=== PATIENT | female | born 1950 | race Caucasian/White ===

== ENCOUNTER 2018-03-15 06:51 | Day surgery (SDC) | payer BC, MEDICARE ==
[~2018-03-15] VITALS: Ht 157.5 cm; Wt 73.2 kg
[2018-03-15] MEDS ORDERED: normal saline 1000ml 1,000 ML IV PRN (07:20)
[2018-03-15 07:31] VITALS: BP 148/78
[2018-03-15 07:50] LABS: BASOPHILS % (AUTO) 0.4 % (0-1); EOSINOPHILS # (AUTO) 0.2 X10'3 (0-0.9); EOSINOPHILS % (AUTO) 3.4 % (0-6); HEMOGLOBIN 13.4 g/dl (12.0-16.0); LYMPHOCYTES # (AUTO) 0.5 X10'3 (1.1-4.8); MEAN CORPUSCULAR HEMOGLOBIN 32.3 PG (27.0-31.0); MEAN CORPUSCULAR HGB CONC 34.2 % (33.0-36.5); MEAN CORPUSCULAR VOLUME 94.4 FL (78-98); MEAN PLATELET VOLUME 8.1 FL (7.4-10.4); MONOCYTES # (AUTO) 0.6 X10'3 (0-0.9); MONOCYTES % (AUTO) 12.7 % (2-12); NEUTROPHILS # (AUTO) 3.5 X10'3 (1.8-7.7); NEUTROPHILS % (AUTO) 72.5 % (42-75); PLATELET COUNT 154 X10'3 (140-440); RED BLOOD COUNT 4.14 X10'6 (4.20-5.60); WHITE BLOOD COUNT 4.8 X10'3 (4.5-11.0)
[2018-03-15 07:59] LABS: ALBUMIN 3.3 G/DL (3.4-5.0); ANION GAP 5 (8-16); BLOOD UREA NITROGEN 12 MG/DL (7-18); BUN/CREATININE RATIO 16.4 (6.6-38.0); CALCIUM 8.9 MG/DL (8.5-10.1); CHLORIDE 104 MMOL/L (99-107); CREATININE 0.73 MG/DL (0.40-0.90); GLUCOSE 95 MG/DL (70-104); POTASSIUM 3.9 MMOL/L (3.5-5.1); SODIUM 140 MMOL/L (135-145); TOTAL CARBON DIOXIDE 30.7 MMOL/L (24-32); eGFR 80 ML/MIN
[2018-03-15 08:02] LABS: PROTHROMBIN TIME 10.6 SECONDS (9.0-12.0)
[2018-03-15] MEDS ORDERED: LISI10TA4 PO (09:00)
[2018-03-15] MEDS ORDERED: LIDOcaine 1%/PF 5ML 10 MG/ML VIAL SQ ONE (10:15)
[2018-03-15] MEDS ORDERED: heparin sodium, porcine/PF 100unit/ml 5ML syringe ICATH ONE (10:15)
[2018-03-15] MEDS ORDERED: midazolam 2 mg/2 ml injection IV PRN (10:15)
[2018-03-15] MEDS ORDERED: fentaNYL/PF 50MCG/1 ML 2ML syringe IV PRN (10:15)
[2018-03-15] MEDS ORDERED: LIDOcaine 1%/PF 5ML 10 MG/ML VIAL ONE ×2 (10:18→10:57)
[2018-03-15] MEDS ORDERED: heparin sodium, porcine/PF 100unit/ml 5ML syringe ONE (10:18)
[2018-03-15] MEDS ORDERED: fentaNYL/PF 50MCG/1 ML 2ML syringe ONE (10:18)
[2018-03-15] MEDS ORDERED: midazolam 2 mg/2 ml injection ONE (10:18)
[2018-03-15 11:32] VITALS: BP 123/54
[2018-03-15 11:45] VITALS: BP 109/68
== END 2018-03-15 13:00 | disposition home or self-care (01) ==
LOC: SSTAY O 06:51
PROVIDERS: ATTEND Radiology Vascular & Interventional Radiology
DX: C82.83 Other types of follicular lymphoma, intra-abdominal lymph nodes (principal); I10 Essential (primary) hypertension; Z79.891 Long term (current) use of opiate analgesic; Z72.89 Other problems related to lifestyle; Z98.890 Other specified postprocedural states; Z79.899 Other long term (current) drug therapy
CPT/HCPCS: 36415; 36561; 76937; 77001; 80048; 85025; 85610; 99152; 99153; J1642; J2001; J2250; J3010; J7030; A6219; C1788; C1894

== ENCOUNTER 2022-03-02 11:00 | Day surgery (SDC) | payer BC, MEDICARE ==
[~2022-03-02] VITALS: Ht 157.5 cm; Wt 77.5 kg
[~2022-03-02 11:00] MED LIST: LISI10TA27 PO
[2022-03-02 11:15] VITALS: BP 131/76
[2022-03-02] MEDS ORDERED: normal saline 1000ml 1,000 ML IV SCH (11:20)
[2022-03-02 12:04] LABS: BASOPHILS % (AUTO) 0.5 % (0-1); EOSINOPHILS # (AUTO) 0.2 X10'3 (0-0.9); EOSINOPHILS % (AUTO) 3.4 % (0-6); HEMATOCRIT 37.6 % (35.0-45.0); HEMOGLOBIN 12.7 g/dl (12.0-16.0); LYMPHOCYTES # (AUTO) 1.7 X10'3 (1.1-4.8); LYMPHOCYTES % (AUTO) 25.4 % (21-51); MEAN CORPUSCULAR HEMOGLOBIN 33.2 PG (27.0-31.0); MEAN CORPUSCULAR HGB CONC 33.9 g/dL (33.0-36.5); MEAN CORPUSCULAR VOLUME 98.1 FL (78-98); MEAN PLATELET VOLUME 8.4 FL (7.4-10.4); MONOCYTES # (AUTO) 0.7 X10'3 (0-0.9); MONOCYTES % (AUTO) 11.1 % (2-12); NEUTROPHILS # (AUTO) 3.9 X10'3 (1.8-7.7); NEUTROPHILS % (AUTO) 59.6 % (42-75); PLATELET COUNT 184 X10'3 (140-440); RED BLOOD COUNT 3.83 X10'6 (4.20-5.60); RED CELL DISTRIBUTION WIDTH 13.4 % (11.5-14.5); WHITE BLOOD COUNT 6.5 X10'3 (4.5-11.0)
[2022-03-02] MEDS ORDERED: HYDR12.55 PO (12:12)
[2022-03-02] MEDS ORDERED: heparin sodium, porcine/PF 100unit/ml 5ML syringe ONE (12:12)
[2022-03-02] MEDS ORDERED: AMLO2.5T5 PO (12:12)
[2022-03-02] MEDS ORDERED: fentaNYL/PF 50MCG/1 ML 2ML syringe ONE (12:13)
[2022-03-02] MEDS ORDERED: midazolam 1 mg/ML 2ml injection ONE (12:13)
[2022-03-02 13:15] VITALS: BP 131/63
[2022-03-02 13:30] VITALS: BP 125/67
[2022-03-02 13:45] VITALS: BP 134/55
[2022-03-02 14:00] VITALS: BP 131/58
== END 2022-03-02 14:15 | disposition home or self-care (01) ==
LOC: SSTAY O 11:00
PROVIDERS: ATTEND Radiology Vascular & Interventional Radiology
DX: C85.80 Other specified types of non-Hodgkin lymphoma, unspecified site (principal); Z79.899 Other long term (current) drug therapy; Z98.890 Other specified postprocedural states
CPT/HCPCS: 36415; 36561; 76937; 77001; 85025; 85610; 99152; 99153; C1788; C1894; J1642; J2250; J3010; J7030; A4620